=== PATIENT | female | born 1950 | race Two or more races ===

== ENCOUNTER 2017-05-17 12:07 | Emergency (ER) | payer OTHER, MEDICARE ==
[~2017-05-17] VITALS: Ht 157.5 cm; Wt 61.2 kg
--- NOTE | 2017-05-17 12:15 | NUR ---
BBRA [id number] FROM THE GYM C/O DIZZINESS WHILE AT THE STEAM ROOM. PATIENT HAS H/O VERTIGO. PATIENT IS CURRENTLY A/OX 4. BREATHING EVEN AND UNLABORED. NO SOB. VITALS STABLE. SAFETY AND COMFORT MEASURES IN PLACE. AWAITING MD ORDERS .
[2017-05-17] MEDS ORDERED: ONDANSETRON HCL/PF 4 MG/2 ML VIAL ONE (12:44)
--- NOTE | 2017-05-17 12:50 | NUR ---
NEW IV STARTED ON LAC, 20 G. BLOOD DRAWN AND SENT TO LAB.
[2017-05-17] MEDS ORDERED: MECLIZINE HCL 25 MG TABLET ONE (12:57)
[2017-05-17] MEDS ORDERED: IV NS 0.9% 1,000 ML BAG IV ONE (13:00)
[2017-05-17] MEDS ORDERED: DIAZEPAM 5 MG/ML 2 ML DISP.SYRIN IV ONE (13:00)
[2017-05-17] MEDS ORDERED: ONDANSETRON HCL/PF 4 MG/2 ML VIAL IVP ONE (13:00)
[2017-05-17] MEDS ORDERED: MECLIZINE HCL 12.5 MG TABLET PO ONE (13:00)
--- NOTE | 2017-05-17 13:00 | NUR ---
PATIENT MEDICATED PER MD ORDERS.
[2017-05-17 13:09] LABS: BASOPHILS % (AUTO) 0.4 % (0.0-2.0); EOSINOPHILS # (AUTO) 0.1 /CMM (0.0-0.7); HEMATOCRIT 40 % (33-45); HEMOGLOBIN 13.6 g/dL (11.5-14.8); LYMPHOCYTES # (AUTO) 1.6 /CMM (0.8-4.8); LYMPHOCYTES % (AUTO) 19.7 % (20.0-44.0); MEAN CORPUSCULAR HEMOGLOBIN 29 PG (26.0-33.0); MEAN CORPUSCULAR HGB CONC 34 g/dl (31.0-36.0); MEAN CORPUSCULAR VOLUME 85 fL (82-100); MONOCYTES # (AUTO) 0.4 /CMM (0.1-1.30); MONOCYTES % (AUTO) 4.6 % (2.0-12.0); NEUTROPHILS # (AUTO) 6.2 /CMM (1.8-8.9); NEUTROPHILS % (AUTO) 74.3 % (43.0-81.0); PLATELET COUNT (AUTO) 266 /CMM (150-450); RDW COEFFICIENT OF VARIATION 12.6 (11.5-15.0); RED BLOOD CELL COUNT(AUTO) 4.75 MIL/uL (4.0-5.2); WHITE BLOOD COUNT (AUTO) 8.3 K/uL (4.3-11.0)
[2017-05-17 13:19] LABS: CALCIUM, SERUM 8.4 mg/dL (8.5-10.1); CARBON DIOXIDE 29 mmol/L (21-32); CHLORIDE 105 mmol/L (98-107); CREATININE 0.6 mg/dL (0.6-1.3); GLUCOSE 120 mg/dL (74-106); POTASSIUM 3.6 mmol/L (3.5-5.1); SODIUM SERUM 139 mmol/L (136-145); UREA NITROGEN, BLOOD 16 mg/dL (7-18)
[2017-05-17 13:24] LABS: ALANINE AMINOTRANSFERASE 25 U/L (12-78); ALBUMIN 3.6 g/dL (3.4-5.0); ALKALINE PHOSPHATASE 79 U/L (46-116); ASPARTATE AMINOTRANSFERASE 16 U/L (15-37); BILIRUBIN,TOTAL 0.4 mg/dL (0.2-1.0); INR 0.95 (0.87-1.13); TOTAL PROTEIN, SERUM 6.9 g/dL (6.4-8.2)
[2017-05-17 13:35] LABS: TROPONIN I < 0.017 ng/mL (0.00-0.056)
[2017-05-17] MEDS ORDERED: LORAZEPAM INJ 2 MG/ML VIAL ONE (13:54)
[2017-05-17] MEDS ORDERED: LORAZEPAM INJ 2 MG/ML VIAL IV ONE (14:00)
[2017-05-17 14:32] VITALS: BP 124/72
--- NOTE | 2017-05-17 14:33 | NUR ---
IV removed. Catheter intact and site benign. Pressure and 4x4 applied to site. No bleeding noted. Patient discharged to home in stable condition. Written and verbal after care instructions given. Patient verbalizes understanding of instruction.
== END 2017-05-17 14:33 | disposition home or self-care (01) ==
LOC: ER 12:09
DX: H81.12 Benign paroxysmal vertigo, left ear (principal)
CPT/HCPCS: 36415; 80048; 80076; 84484; 85025; 85730; 93005; 96361; 96374; 96375; 99285; A4606; J2060; J2405; J7030; J8597; Z7610